=== PATIENT | female | born 1940 | race Caucasian/White ===

== ENCOUNTER 2017-09-02 20:20 | Observation (INO) ==
--- OUTSIDE RECORDS SUMMARY | 2017-09-02 20:46 | External Medical Summary | Referral Summary ---
:1940 Author Organization [facility] Address [address] [place] [address] Care Team Providers Name Role Phone Rashaun Mcgowan Primary Care Physician Encounter [facility] Date(s): 03/03/16 - 03/03/16 [facility] [address] [place] [address]- [place] Discharge Diagnosis: Hematuria Discharge Disposition: 01-Home or Self Care Attending Physician: Demarco Garcia MD Admitting Physician: Demarco Garcia MD Vital Signs Most recent to oldest [Reference Range]: 1 Blood Pressure [90-140/60-90 mmHg] 152/82 mmHg *HI* (03/03/16 3:08 PM) Problem List Condition Effective Dates Status Health Status Informant AF (atrial fibrillation)(Confirmed) Active Anticoagulation adequate(Confirmed) Active Adult hypothyroidism(Confirmed) Active Allergies, Adverse Reactions, Alerts Substance Reaction Severity Status penicillin Eczema (rash) Active Medications aspirin 325 mg, Oral, Daily, 0 Refill(s) Start Date: 02/22/16 Status: OrderedCalcium 600+D 2 tabs, Oral, Daily, 0 Refill(s) Start Date: 02/22/16 Status: Orderedflecainide 50 mg oral tablet mg tabs, Oral, q12hr, 0 Refill(s) Start Date: 02/02/16 Status: Orderedloratadine 10 mg oral tablet 10 mg 1 tabs, Oral, Daily, 0 Refill(s) Start Date: 02/22/16 Status: OrderedNitrostat 0.4 mg sublingual tablet 0.4 mg 1 tabs, SubLingual, q5min, as needed for chest pain, 0 Refill(s) Start Date: 02/22/16 Status: OrderedPradaxa 150 mg oral capsule 150 mg 1 caps, Oral, BID, # 60 caps, 0 Refill(s) Start Date: 02/02/16 Status: OrderedSynthroid 150 mcg (0.15 mg) oral tablet mcg tabs, Oral, Daily, 0 Refill(s) Start Date: 02/02/16 Status: OrderedVitamin D3 1000 intl units oral tablet 1,000 Intl_Units 1 tabs, Oral, Daily, 0 Refill(s) Start Date: 02/22/16 Status: Ordered Results No data available for this section Immunizations No data available for this section Procedures Procedure Date Related Diagnosis Body Site Cystourethroscopy (separate procedure).. 03/03/16 Social History Social History Type Response Smoking Status Never smoker Assessment and Plan Extracted from: Title: Office Visit Note Author: Demarco Garcia MD Date: 03/03/16 Assessment/Plan 1.Hematuria Almost certainly benign. Patient agreed to go to laboratory in July for follow-up urinalysis. She understands to return here should she develop recurrent gross hematuria. Information also provided to herregarding urinary tract infections in females and prophylactic measures.
--- OUTSIDE RECORDS SUMMARY | 2017-09-02 20:46 | External Medical Summary | Referral Summary ---
:1940 Author Organization [facility] Address [address] [place] [address] Care Team Providers Name Role Phone Rashaun Mcgowan Primary Care Physician Encounter [facility] Date(s): 02/22/16 - 02/22/16 [facility] [address] [place] [address]- [place] Discharge Diagnosis: Hematuria Discharge Disposition: 01-Home or Self Care Attending Physician: Demarco Garcia MD Admitting Physician: Demarco Garcia MD Referring Physician: Rashaun Mcgowan DO Vital Signs Most recent to oldest [Reference Range]: 1 Blood Pressure [90-140/60-90 mmHg] 150/88 mmHg *HI* (02/22/16 3:31 PM) Problem List Condition Effective Dates Status [...] Refill(s) Start Date: 02/22/16 Status: Ordered Results Chemistry Most recent to oldest [Reference Range]: 1 Creatinine Lvl [0.57-1.11 mg/dL] 0.74 mg/dL (02/22/16 4:40 PM) eGFR [>60 mL/min] >60 mL/min 1 (02/22/16 4:40 PM) 1Result Comment: Multiply eGFR results by 1.21 for race. Immunizations No data available for this section Procedures No data available for this section Social History Social History Type Response Smoking Status Never smoker Assessment and Plan Extracted from: Title: Office Visit Note Author: Demarco Garcia MD Date: 02/22/16 Assessment/Plan 1.Hematuria Particularly given thatthis was painless hematuriaand given her ageand with the previous normalcreatinine,I advised a CT urography. Rationale for these x-rays risks complic ations and side effects discussed. And I told herthat she needs a cystoscopy. Follow-up here emphasized. Differential diagnosisin layman's termsof hematuriagone over with her. Ordered: Creatinine Lvl CT Renal/Urography
--- OUTSIDE RECORDS SUMMARY | 2017-09-02 20:46 | External Medical Summary | Referral Summary ---
:1940 Author Organization [facility] Address [address] [place] [address] [place] [address] Care Team Providers Name Role Phone ShantelleClaude Cynthia Primary Care Physician Encounter [facility] [id number] Date(s): 02/02/16 - 02/02/16 [facility], [address] [place] [address]- [place] Discharge Disposition: 01-Home or Self Care Attending Physician: Marcel Coley MD Admitting Physician: Marcel Coley MD Vital Signs Most recent to oldest [Reference Range]: 1 Temperature Tympanic [36.6-38.1 degC] 36.4 degC *LOW* (02/02/16 8:28 AM) Peripheral Pulse Rate [60-100 bpm] 62 bpm (02/02/16 8:28 AM) Blood Pressure [90-140/60-90 mmHg] 160/72 mmHg *HI* (02/02/16 8:28 AM) SpO2 96 % (02/02/16 8:28 AM) Problem List Condition Effective Dates Status Health Status Informant AF (atrial fibrillation)(Confirmed) Active Anticoagulation adequate(Confirmed) Active Adult hypothyroidism(Confirmed) Active Allergies, Adverse Reactions, Alerts Substance Reaction Severity Status penicillin Eczema (rash) Active Medications flecainide 50 mg oral tablet mg tabs, Oral, q12hr, 0 Refill(s) Start Date: 02/02/16 Status: OrderedPradaxa 150 mg oral capsule 150 mg 1 caps, Oral, BID, # 60 caps, 0 Refill(s) Start Date: 02/02/16 Status: OrderedSynthroid 150 mcg (0.15 mg) oral tablet mcg tabs, Oral, Daily, 0 Refill(s) Start Date: 02/02/16 Status: Ordered Results No data available for this section Immunizations No data available for this section Procedures No data available for this section Social History Social History Type Response Smoking Status Never smoker Assessment and Plan Extracted from: Title: Ambulatory Patient Education Author: Marcel Coley MD Date: Family Medicine Hematuria Hematuria is blood in your urine. It can be caused by a bladder infection, kidney infection, prostate infection, kidney stone, or cancer of your urinary tract. Infections can usually be treated with med icine, and a kidney stone usually will pass through your urine. If neither of these is the cause of your hematuria, further workup to find out the reason may be needed. It is very important that you tell your health care provider about any blood you see in your urine, even if the blood stops without treatment or happens without causing pain. Blood in your urine that urban ppens and then stops and then happens again can be a symptom of a very serious condition. Also, pain is not a symptom in the initial stages of many urinary cancers. HOME CARE INSTRUCTIONS Drink lots of fluid, 34 quarts a day. If you have been diagnosed with an infection, cranberry juice is especially recommended, in addition to large amounts of water. Avoid caffeine, tea, and carbonated beverages because they tend to irritate the bladder. Avoid alcohol because it may irritate the prostate. Take all medicines as directed by your health care provider. If you were prescribed an antibiotic medicine, finish it all even if you start to feel better. If you have been diagnosed with a kidney stone, follow your health care provider's instructions regarding straining your urine to catch the stone. Empty your bladder often. Avoid holding urine for long periods of time. After a bowel movement, women should cleanse front to back. Use each tissue only once. Empty your bladder before and after sexual intercourse if you are a female. SEEK MEDICAL CARE IF: You develop back pain. You have a fever. You have a feeling of sickness in your stomach (nausea) or vomiting. Your symptoms are not better in 3 days. Return sooner if you are getting worse. SEEK IMMEDIATE MEDICAL CARE IF: You develop severe vomiting and are unable to keep the medicine down. You develop severe back or abdominal pain despite taking your medicines. You begin passing a large amount of blood or clots in your urine. You feel extremely weak or faint, or you pass out. MAKE SURE YOU: Understand these instructions. Will watch your condition. Will get help right away if you are not doing well or get worse. This information is not intended to replace advice given to you by your health care provider. Make sure you discuss any questions you have with your health care provider. Document Released: 11/02/2006 Document Revised: 03/19/2015 Document Reviewed: 07/03/2014 Exit[employer] Patient Information 2015 [employer]. No follow up information was provided. Extracted from: Title: Office Visit Note Author: Marcel Coley MD Date: 02/02/16 Assessment/Plan Adult hypothyroidism This issue was reviewed, appears stable, and current therapy continued except as mentioned. Appropriate lab was reviewed from the most recent appropriate entry and lab was order ed if needed in the cpoe/nursing orders, and follow up recommended generally in 90 days and no later then six months. AF (atrial fibrillation) Stable. Sees Dr. Knight. Hold pradaxa for 48 hours and f/u with . Anticoagulation adequate Hold pradaxa. Hematuria Keflex 500mg po qid for five days. Hematuria on UA. Strongly recommend cystoscopy and consideration of renal CT on Thursday. To ER if worse in any way. Much better and cleared today per her at this time.
[2017-09-02] MEDS ORDERED: HYDROMORPHONE 2 MG/ML INJECTION IVP ONE (20:52)
[2017-09-02] MEDS ORDERED: ONDANSETRON 4 MG/2 ML INJECTION IVP ONE ×2 (20:52→21:55)
--- NOTE | 2017-09-02 20:54 | Emergency Department Report ---
Fall HPI - General Chief Complaint: Fall Stated Complaint: fall, R shoulder/back pain Time Seen by Provider: 09/02/17 20:34 Source: patient Mode of arrival: wheelchair Limitations: no limitations - History of Present Illness HPI Narrative: PT fell about 1900 this evening while walking outside. States she landed on her right knee and right shoulder and did strike her head. Pt had an episode of emesis while in the lobby. She denies being dizzy or lightheaded prior to the fall states she lost her footing MD complaint: fall Onset (ago): hour(s) Fall from: standing Fall witnessed: yes, by family Place fall occurred: home Loss of consciousness: none Prolonged down time: no Symptoms prior to fall: none Context: tripped/slipped Location of injury: head, back, other Location of injury - extremities: Right: shoulder Associated symptoms (after fall): other (nausea and vomiting ) - Related Data Home Medications Medication Instructions Recorded Confirmed Nitroglycerin [Nitrostat] 1 tab SL PRN INSTRUCTED #25 09/09/13 09/02/17 Apixaban [Eliquis] 5 mg PO BID 09/02/17 09/02/17 Flecainide [Tambocor] 50 mg PO Q12H 09/02/17 09/02/17 Guaifenesin/P-Ephed 600/60 Tab 1 tab PO HS 09/02/17 09/02/17 [Mucinex D] Levothyroxine Sodium 125 mcg PO AM 09/02/17 09/02/17 Loratadine [Claritin] 10 mg PO AM 09/02/17 09/02/17 Allergies Allergy/AdvReac Type Severity Reaction Status Date / Time Penicillins Allergy Mild RASH Verified 09/02/17 20:45 Review of Systems All systems: reviewed and negative except as stated Constitutional: Denies: fever, weakness Cardiovascular: Denies: chest pain Gastrointestinal: Reports: nausea, vomiting Musculoskeletal: Reports: back pain, joint swelling [facility]gumentary: [facility]: [facility] - Social History Smoking status: Never smoker Physical Exam - Limitations Limitations: no limitations - General General appearance: alert, in distress - Normal Exams: Head:: Normocephalic without trauma (small bruise to right forehead) Neck:: Full range of motion, without adenopathy Chest/Respirations:: Clear all shoemaker, with good airflow, and symmetry bilaterally Cardiovascular:: Regular rate and rhythm, without murmur or gallop Abdomen:: Bowel sounds positive, soft, non-tender, non-distended Integumentary:: No rashes Neurological:: Patient is alert, and oriented, cranial nerves Psychiatric:: Patient exhibits, appropriate attention, emotion and affect - Expanded Upper Extremity Exam Shoulder exam: Present: tenderness, swelling. Absent: full ROM - Back Exam Back exam: Present: normal inspection, full ROM. Absent: tenderness (no midline tenderness with palpation) Course - Consultations Consultation #1: elizabeth Time: 21:46 Consultation #2: Andreas Time: 22:00 Vital Signs Temperature 98 F 09/02/17 20:30 Pulse Rate 63 09/02/17 20:30 Respiratory Rate 16 09/02/17 20:30 Blood Pressure 150/68 H 09/02/17 20:30 Pulse Oximetry 95 09/02/17 20:30 Temperature 98 F 09/02/17 20:30 Pulse Rate 85 09/02/17 21:52 Respiratory Rate 24 09/02/17 21:52 Blood Pressure 105/55 09/02/17 21:52 Pulse Oximetry 93 09/02/17 21:52 Fall - [facility] Narrative Medical decision making narrative: Xray reveals right humeral head fracture per Dr Anthony report. Head CT performed 2/2 to pt vomiting and ELiquis use for A fib with no acute findings. Dr Gamez notified of fracture and need to admit pt for pain control as she lives by herself and will need assist with ADLs as well as the continued vomiting. Dr Johns notified for admission. Pt and family in agreement with current treatment course - Differential Diagnosis Likely: syncope, dislocation of shoulder region, compression fracture, concussion without loss of consciousness - Radiology Data Attestation: I reviewed the patient's radiology results. (per Dr Anthony report) Disposition Clinical Impression: Fracture of humeral head Qualifiers: Encounter type: initial encounter Fracture type: closed Laterality: right Qualified Code(s): S42.291A - Other displaced fracture of upper end of right humerus, initial encounter for closed fracture Vomiting Qualifiers: Vomiting type: unspecified Vomiting Intractability: intractable Nausea presence : with nausea Qualified Code(s): R11.2 - Nausea with vomiting, unspecified Disposition: [address] [facility] [place] Acute Care Condition: Improved Prescriptions: No Action Nitroglycerin [Nitrostat] 1 tab SL PRN INSTRUCTED #25 Levothyroxine Sodium 125 mcg PO AM Apixaban [Eliquis] 5 mg PO BID Loratadine [Claritin] 10 mg PO AM Guaifenesin/P-Ephed 600/60 Tab [Mucinex D] 1 tab PO HS Flecainide [Tambocor] 50 mg PO Q12H Time of Disposition: 22:10 - Seen By: giancarlo
[2017-09-02] MEDS ORDERED: NS 1,000 ML IV SCH (22:00)
[2017-09-02] MEDS: HYDROMORPHONE 2 MG/ML INJECTION IVP PRN ×2 (22:24→23:34)
[2017-09-02] MEDS ORDERED: NITROGLYCERIN 0.4 MG SUBLINGUAL TABLET SL PRN (22:56)
[2017-09-02] MEDS ORDERED: ACETAMINOPHEN 325 MG TABLET PO PRN (22:56)
[2017-09-02] MEDS ORDERED: ONDANSETRON 4 MG/2 ML INJECTION IVP PRN (22:56)
[2017-09-02] MEDS ORDERED: POLYETHYL. GLYCOL 3350 BOTTLE 238 GM PO PRN (22:56)
--- NOTE | 2017-09-02 23:20 | History & Physical Report ---
<Lucian Johns - Last Filed: 09/03/17 00:12> History of Present Illness Date: 09/03/17 Chief complaint: Trip and fall HPI: Ms Souza is a 77 y/o female w/ a past med history significant for AFib on Eliquis, Hypothyroidism who presents to [facility] ED w/ concern about her right shoulder. Patient states she was outside [facility] burning her trash when she lost her footing and fell to the ground primarily on her right shoulder and also hit her head. She felt the right shoulder pain immediately and had trouble moving the right UE. She was able to get to a position to call her son who came over to help her. Prior to the fall patient states she had been feeling "fine", and denied any illnesses other than she did have a little "stomach upset" today. She denies cough, dyspnea, WALTERS, change in bladder function and denies diarrhea. She did have some n/v upon presentation to the ER. In the ER patient noted to have Right humeral head fracture and therefore ER provider contacted Dr. Gamez of [facility] and he suggested hospitalization and pain control but did not feel that surgery was warranted at this time. Patient was given IV Dilaudid 0.5mg x 2 and Zofran 4mg IV x one and at present she is feeling much better and her n/v has improved. Head CT done as well and is negative. Patient did not take her dose of Eliquis tonight. Patient to be admitted to the Hospitalist service for further evaluation and management with consult from Orthopedic surgery Review of Systems Review of systems: 10 point ROS negative except that as noted in the HPI PFSH Patient has h/o AFib, Hypothyroidism, arthritis, Seasonal Allergies Family History: Patient's father had anuersym and at age 53; Patient's mother w/ DM Type 2 and lived into her early 90s; Patient's brother has DM type 2 and HTN - Social History Smoking status: Never smoker Substance use type: does not use Alcohol intake frequency: does not drink Housing: house Current occupation: Retired Schoolteacher Medications Home Medications Medication Instructions Recorded Confirmed Type Nitroglycerin [Nitrostat] 1 tab SL PRN INSTRUCTED #25 09/09/13 09/02/17 History Apixaban [Eliquis] 5 mg PO BID 09/02/17 09/02/17 History Flecainide [Tambocor] 50 mg PO Q12H 09/02/17 09/02/17 History Guaifenesin/P-Ephed 600/60 Tab 1 tab PO HS 09/02/17 09/02/17 History [Mucinex D] Levothyroxine Sodium 125 mcg PO AM 09/02/17 09/02/17 History Loratadine [Claritin] 10 mg PO AM 09/02/17 09/02/17 History Allergies Allergy/AdvReac Type Severity Reaction Status Date / Time Penicillins Allergy Mild RASH Verified 09/02/17 20:45 Exam Vital Signs: Temperature 98 F 09/02/17 20:30 Pulse Rate 72 09/02/17 23:00 Respiratory Rate 24 09/02/17 21:52 Blood Pressure 111/56 09/02/17 22:48 Pulse Oximetry 95 09/02/17 23:00 - Constitutional Present: no acute distress, well nourished, well developed - Routine HEENT Exam Head: Present: normocephalic Eye: Present: EOMI, PERRL. Absent: scleral injection ENT: Present: mucous membranes moist - Routine Neck Exam Present: supple, full ROM - Routine Respiratory Exam Present: CTA bilaterally - Routine Cardiovascular Exam Present: S1, S2 Comments: Rhythm regular - Routine Abdominal Exam Present: soft, normoactive bowel sounds, non distended - Routine Extremities Exam Absent: cyanosis, clubbing, edema Comments: Right upper extremity in an immobilizer; moves right digits and wrist w/o difficulty; no numbness or tingling - Routine Skin Exam Present: intact. Absent: cyanosis, erythema - Routine Neurological Exam Present: alert, oriented X3 - Routine Psychiatric Exam Present: normal affect, normal thought process Results - Labs CBC & Chem 7: 09/02/17 22:59 09/02/17 22:59 Assessment and Plan DVT Prophylaxis: SCD's Resuscitation Status: Full Code Assessment and Plan: Assessment: 1) S/p mechanical fall w/ Right humeral head fracture and right shoulder pain 2) N/V likely r/t to above 3) Afib on flecainide and Eliquis 4) Acute Leukocytosis - acute phase reaction vs. other etiology 5) Hypothyroidism Plan: Admit to Hospitalist service Consult Ortho Right shoulder immobilizer, bed at 30 degrees and Ice pack prn on shoulder Pain meds that of acetaminophen, Noprnrco 5/325mg po q 6 hours and prn Dilaudid 0.5mg IV q 3 hours prn breakthrough pain Telemetry Zofran 4mg IV q 4 hours prn Hold Eliquis dose tonight - will defer to primary Hospitalist and Ortho re: resuming Eliquis Continue Flecainide PT/OT evals UA Labs in AM - CBC and BMP Supportive care I discussed the plan of care with the patient and patient verbalized understanding Hospital Course Summary Disclaimer: The visit summary below is not to be considered part of the above Progress Note. <Natty Segura - Last Filed: 09/03/17 10:05> History of Present Illness Date: 09/03/17 [facility] Patient Stated Medical History Cataracts Yes: chelita eyes Hearing Loss Yes: chelita hearing aids Other Cardiology Yes: a fib Hx Incontinence Yes: stress incontinence Other Hematologic Yes: on blood thinners Other Musculoskeletal Yes: arthritis in chelita ankles Exam Vital Signs: Temperature 96.2 F L 09/03/17 07:25 Pulse Rate 69 09/03/17 07:25 Respiratory Rate 20 09/03/17 07:25 Blood Pressure 102/43 09/03/17 07:25 Pulse Oximetry 93 09/03/17 07:25 Height/Weight/BMI: Height 5 ft 6 in Weight 216 lb 14.958 oz Body Mass Index 35.0 Results - Labs CBC & Chem 7: 09/03/17 04:02 09/03/17 08:38 Assessment and Plan Assessment and Plan: I have independently evaluated and examined this patient. I reviewed the chart, the patient's history, and the above documented findings with additions as below. The patient is a 77-year-old white female [place] She was out burning trash yesterday when she stepped on a prior which rolled under her feet and she fell to the ground landing on her right shoulder, right knee and hit her head. She reports it took a while for her to be able to sit out and then she was able to reach her cell phone and call her son who came to help her. She was brought to the emergency department and found to have a right humeral head fracture. She reports that after she arrived in the emergency department she started having nausea and vomiting and threw up about 3 or 4 times. She denies any fevers,chills, sweats, no abdominal pain, no diarrhea. In fact, she's had constipation issues for which she has taken MiraLAX. She reports about a week ago she felt dizzy and didn't know if it was an inner ear problem or due to constipation. After she took MiraLAX the problems resolved. Past medical history: Atrial fibrillation for which she has been followed by Dr. Day she was on per DEXA until about 6 weeks ago and then switched to eliquis Hypothyroidism Arthritis primarily involving her ankles for which she takes Tylenol Seasonal allergies Colonoscopy about 10 years ago Family history as above. Social history: She does not smoke she does not drink alcohol she lives independently on her own. She is a retired math specialist. Immunizations: She has had at least one pneumococcal vaccine, she's not sure if she's had 2. She needs influenza vaccine. She needs a Tdap Review of systems: The patient denies fevers, chills or sweats,no changes in weight HEENT: No headaches,sinus problems and sinus drainage secondary to seasonal allergies, no visual changes, no sore throat, no sores in the mouth, no dental problems. Lungs: No shortness of breath, no dyspnea on exertion, no cough, no sputum production. CV: No chest pain,no palpitations for the last 6 months, no swelling of the extremities GI: As per history of present illness,,no blood in the stool, no dark-colored stools, no bright red blood per rectum. : No dysuria, no hematuria, no flank pain. Musculoskeletal: No numbness or tingling in the arms or legs, no weakness. Skin: No skin rash. Physical exam: In general the patient is alert and oriented, cooperative with exam in no respiratory distress. HEENT: Head is atraumatic and normocephalic. Pupils are equal round and reactive to light. Extraocular movements are intact. There is no conjunctival petechiae or scleral icterus. Oral mucosa is moist and pink with out exudate or lesions. Neck is supple without adenopathy. Lungs: Clear to auscultation, no wheezes, no rhonchi, no crackles. CV: Regular rate and rhythm without murmur, occasional extrasystole Abdomen: Bowel sounds are present. There is no guarding, no rebound, no hepatosplenomegaly. Extremities: Has no clubbing,no cyanosis, no edema. Right shoulder has marketed swelling noted there is no warmth, is slightly tender, there is no erythema. Her right knee is slightly tender but without effusion. Musculoskeletal: Moves all 4 extremities without difficulty except the right upper extremity secondary to fracture Skin: Is warm and dry without evidence of rash or ecchymoses Assessment: Comminuted impacted right surgical neck fracture Right knee pain Nausea and vomiting appear to be resolving Hyperkalemia with potassium 5.1 however with recheck it was 4.2. Atrial fibrillation on eliquis, flecainide Hypothyroidism on levothyroxine Seasonal allergies for which she uses Mucinex Immunization status Plan: Appreciate Dr. Gamez's input. The patient is to be scheduled to see Dr. Castanon as an outpatient next week for discussion of potential surgical interventions. As discussed with Mendel Contreras, we'll resume eliquis as it has a half-life of 12 hours. We'll add oral [place] for pain management which does not respond to Tylenol. Have advised patient and the risks of constipation secondary to narcotics, she reports she uses MiraLAX at home. We will have case management evaluate the patient for safe options at discharge. The patient and family have concerns about her going home as she is fairly isolated lives alone. We'll given influenza vaccine and a T Tdap today. The patient will follow-up with Dr. Mcgowan to see if she's received both pneumococcal vaccines 13 and 23 Valent. Hospital Course Summary Disclaimer: The visit summary below is not to be considered part of the above Progress Note.
[2017-09-02 23:48] VITALS: BMI 35.0
[2017-09-03] MEDS: FLECAINIDE 50 MG TABLET PO SCH ×2 (00:20→13:37)
[2017-09-03] MEDS ORDERED: HYDROMORPHONE 2 MG/ML INJECTION IVP PRN ×4 (01:59→03:08)
[2017-09-03] MEDS: HYDROMORPHONE 2 MG/ML INJECTION IVP PRN (03:05)
[2017-09-03] MEDS ORDERED: LEVOTHYROXINE 125 MCG TABLET PO SCH (06:30)
[2017-09-03] MEDS ORDERED: LORATADINE 10 MG TABLET PO SCH (07:00)
[2017-09-03 07:58] VITALS: BP 102/43; RESP 20; TEMP 96.2; O2SAT 93
--- NOTE | 2017-09-03 08:11 | Orthopedic Consult Note ---
Orthopedic Consultation HPI - Consultation Info Consult Date: 09/03/17 Attending Physician: David Gamez MD Consult Reason: fracture - History of Present Illness Mrs. Souza is a 77 year old female who fell yesterday landing on her right shoulder. She hit her head as well. She takes Eliquis for A-fib. She was seen in the ER yesterday. CT of her head was negative. She was admitted for pain control under the care of the hospitalist team. X-rays of her right shoulder show a impacted, comminuted surgical neck humerus fracture. Review of Systems - Constitutional Constitutional: Present: headache(s). Absent: weakness, dizziness Comments: denies diplopia, tinnitus, trouble swallowing. - EENT Eyes: Absent: blurry vision, diplopia Ears, nose, mouth, throat: Present: headaches. Absent: vertigo, ear pain, tinnitus - Cardiovascular Cardiovascular: Absent: chest pain Vascular: Absent: pallor of an extermity, pedal edema - Respiratory Respiratory: Absent: cough - Gastrointestinal Gastrointestinal: Absent: abdominal pain - Genitourinary Genitourinary General: Absent: fever(s) - Musculoskeletal Musculoskeletal: Present: joint swelling (right shoulder, some ache/pain to right lateral knee.), limited range of motion (right shoulder) Additional comments: N/V intact to right hand and fingers. full active range of motion of the right wrist and hand. - Neurological Neurological: Absent: dizziness, numbness, paresthesias - Endocrine Endocrine: Absent: palpitations - Hematologic/Lymphatic Hematologic/Lymphatic: Present: easy bleeding (on Eliquis) PFS Patient Stated Medical History Cataracts Yes: chelita eyes Hearing Loss Yes: chelita hearing aids Other Cardiology Yes: a fib Hx Incontinence Yes: stress incontinence Other Hematologic Yes: on blood thinners Other Musculoskeletal Yes: arthritis in chelita ankles - Social History Smoking status: Never smoker Medications Home Medications Medication Instructions Recorded Confirmed Type Nitroglycerin [Nitrostat] 1 tab SL PRN INSTRUCTED #25 09/09/13 09/02/17 History Apixaban [Eliquis] 5 mg PO BID 09/02/17 09/02/17 History Flecainide [Tambocor] 50 mg PO Q12H 09/02/17 09/02/17 History Guaifenesin/P-Ephed 600/60 Tab 1 tab PO HS 09/02/17 09/02/17 History [Mucinex D] Levothyroxine Sodium 125 mcg PO AM 09/02/17 09/02/17 History Loratadine [Claritin] 10 mg PO AM 09/02/17 09/02/17 History Allergies Allergy/AdvReac Type Severity Reaction Status Date / Time Penicillins Allergy Mild RASH Verified 09/02/17 20:45 Orthopedic Exam Vital signs: Temperature 96.2 F L 09/03/17 07:25 Pulse Rate 69 09/03/17 07:25 Respiratory Rate 20 09/03/17 07:25 Blood Pressure 102/43 09/03/17 07:25 Pulse Oximetry 93 09/03/17 07:25 - Constitutional General Appearance: Present: alert, orientated x3, no acute distress - Respiratory Exam Present: non-labored - Cardiovascular Exam Present: irregular rhythm Capillary Refill: < 2-3 Seconds - Abdominal Exam Absent: tenderness - Extremities Exam Present: pulses intact, joint swelling (Right shoulder). Absent: cyanosis, clubbing, edema, calf tenderness Comments: Right knee is TTP over the fibular head, minimal joint line tenderness. No overt effusion. ROM 0-110, N/V intact. - Integumentary Exam Present: pink, warm, dry, intact - Lymphatic Lymphatic: Absent: lymphedema - Neurological Exam Present: intact to light touch, no deficits - Psychiatric Exam Present: normal affect - Labs Result Diagrams: 09/03/17 04:02 09/03/17 04:02 Abnormal lab results 09/03/17 09/03/17 09/03/17 Range/Units 03:56 04:02 04:02 WBC 11.8 H (4.5-11.0) T/MM3 Neutrophils % (Manual) 87.0 H (33-66) % Lymphocytes % (Manual) 6.0 L (23-45) % Neutrophils # (Manual) 10.3 H (1.8-7.7) T/MM3 Lymphocytes # (Manual) 0.7 L (1-4.8) T/MM3 Sodium 145 H (134-144) MEQ/L Potassium 5.1 H D (3.6-5) MEQ/L Glucose 152 H (65-110) MG/DL Calculated Osmolality 284 H (261-280) MOSM/KG Urine Protein Trace A (NEGATIVE) Urine Ketones Trace A (NEGATIVE) H & H 09/03/17 Range/Units 04:02 Hgb 12.4 (12-16) GM/DL Hct 38.7 (36-46) % - Diagnostic results Shoulder x-ray: image reviewed Impression and Recommendation (1) Right knee pain Current visit: Yes Status: Acute X-ray right knee (2) Fracture of humeral head Current visit: Yes Qualifiers: Encounter type: initial encounter Fracture type: closed Laterality: right Qualified Code(s): S42.291A - Other displaced fracture of upper end of right humerus, initial encounter for closed fracture Status: Acute She has a comminuted impacted right surgical neck fracture. Dr. Gamez is recommending further evaluation by Dr. Cal Castanon on an outpatient basis. Her options are nonoperative care with acceptance of potential finishing trimmer OA, possible decreased ROM vs consider a reverse total shoulder arthroplasty. She should follow up within a week with Dr. Castanon. Hospital Course Summary Disclaimer: The visit summary below is not to be considered part of the above Progress Note.
--- NOTE | 2017-09-03 09:11 | CT Scan Report ---
Indication: fall with head trauma, on blood thinner, vomited PROCEDURE: CT head/brain wo con: Encounter: Initial Comparison: None Technique: Axial CT images through the head were performed without contrast. Iterative Reconstruction dose reducing technique was utilized. FINDINGS: Mild generalized atrophy. The ventricles are of normal size, shape, and configuration for the patient's age. There is no evidence of acute intracranial hemorrhage, midline displacement, or mass effect. There are scattered areas of low attenuation in the white matter which most likely represent changes of chronic microvascular ischemia. The CT attenuation of the brain parenchyma is otherwise normal within the cerebellum, brain stem, and cerebral hemispheres. The tympanic cavities and mastoid air cells are free of appreciable disease. There are no definite fractures of the skull base, calvarium, or visualized portion of the midface. IMPRESSION: No CT evidence of acute traumatic intracranial injury. There is a preliminary report by virtual radiologic. .
--- NOTE | 2017-09-03 09:11 | XRay Report ---
Indication: fall pain PROCEDURE: XR shoulder RT 2-3 views: Encounter: Initial Comparison: None Findings: Impacted mildly displaced fracture of the surgical neck right humerus extending into the greater tuberosity. No additional acute fracture. No dislocation. Impression: Closed posttraumatic right humeral head and neck fracture. .
--- NOTE | 2017-09-03 09:14 | XRay Report ---
Indication: PAIN TO RIGHT KNEE, POST FALL PROCEDURE: XR knee RT 3V: Encounter: Initial Comparison: None Findings: Slight cortical irregularity of the lateral most aspect of the patella seen on the sunrise view only could represent a tiny chip fracture. No additional area concerning for acute fracture. No dislocation. Impression: Possible tiny chip fracture of the lateral patella. .
[2017-09-03] MEDS ORDERED: INFLUENZA VAC QIV 2017-18 (Fluarix*)(>=3yo) 0.5ml IM ONE (09:48)
[2017-09-03] MEDS ORDERED: TETANUS, DIPHTHERIA, a PERTUSSIS (Tdap) 0.5ml INJECTION IM ONE (09:48)
[2017-09-03] MEDS: HYDROCODONE/APAP 5mg/325mg TABLET PO PRN ×2 (10:33→13:31)
--- NOTE | 2017-09-03 12:01 | Discharge Instructions ---
Discharge Plan - Med Rec/Dispo Referrals/Follow Up: SHAILA SAMUELS [Other] - 09/04/17 8:30 am Rashaun Mcgowan DO [Family Provider] - 09/08/17 10:00 am Prescriptions: New Acetaminophen [Tylenol] 650 mg PO Q5H PRN tablet PRN Reason: Discomfort Hydrocodone/APAP 5/325 [[place] 5/325] 1 - 2 tab PO Q4H PRN #30 tab PRN Reason: Pain Continue Nitroglycerin [Nitrostat] 1 tab SL PRN INSTRUCTED #25 Levothyroxine Sodium 125 mcg PO AM Apixaban [Eliquis] 5 mg PO BID Loratadine [Claritin] 10 mg PO AM Guaifenesin/P-Ephed 600/60 Tab [Mucinex D] 1 tab PO HS Flecainide [Tambocor] 50 mg PO Q12H Discharge Instructions/Outpatient Orders: Provider Discharge Instructions Location: Determined By Patient - Disposition 01 Discharged Home, Self-Care
--- NOTE | 2017-09-03 12:09 | Discharge Summary ---
Discharge Information Date of admission: 09/02/17 23:05 Attending Physician: Natty Segura MD Primary care physician: Rashaun Mcgowan DO - Laboratory Labs: 09/03/17 04:02 09/03/17 08:38 History of Present Illness HPI: Ms Souza is a 77 y/o female w/ a past med history significant for AFib on Eliquis, Hypothyroidism who presents to [facility] ED w/ concern about her right shoulder. Patient states she was outside tonight burning her trash when she lost her footing and fell to the ground primarily on her right shoulder and also hit her head. She felt the right shoulder pain immediately and had trouble moving the right UE. She was able to get to a position to call her son who came over to help her. Prior to the fall patient states she had been feeling "fine", and denied any illnesses other than she did have a little "stomach upset" today. She denies cough, dyspnea, WALTERS, change in bladder function and denies diarrhea. She did have some n/v upon presentation to the ER. In the ER patient noted to have Right humeral head fracture and therefore ER provider contacted Dr. Gamez of [facility] and he suggested hospitalization and pain control but did not feel that surgery was warranted at this time. Patient was given IV Dilaudid 0.5mg x 2 and Zofran 4mg IV x one and at present she is feeling much better and her n/v has improved. Head CT done as well and is negative. Patient did not take her dose of Eliquis tonight. Patient to be admitted to the Hospitalist service for further evaluation and management with consult from Orthopedic surgery Objective Vital signs: Temperature 96.2 F L 09/03/17 07:25 Pulse Rate 69 09/03/17 07:25 Respiratory Rate 20 09/03/17 07:25 Blood Pressure 102/43 09/03/17 07:25 Pulse Oximetry 93 09/03/17 07:25 Height/Weight/BMI: Height 5 ft 6 in Weight 216 lb 14.958 oz Body Mass Index 35.0 - Additional findings Additional findings: In general, the patient is alert and oriented 3, cooperative with exam, and in no respiratory distress. HEENT: Head is atraumatic, normocephalic, no conjunctival petechiae, no oral thrush, mucous membranes are moist and pink. Lungs: Clear to auscultation without wheezes, crackles or rhonchi CV: Regular rate and rhythm without murmur Abdomen: Soft, nontender, bowel sounds are present, there is no guarding no rebound. Extremities: No clubbing, no cyanosis, no edema except swelling of right shoulder and tenderness with palpation. Slight tenderness of right knee with palpation. Skin: Warm and dry no sign of rash Neuro: Patient is alert X-ray of the right knee: Findings: Slight cortical irregularity of the lateral most aspect of the patella seen on the sunrise view only could represent a tiny chip fracture. No additional area concerning for acute fracture. No dislocation. Impression: Possible tiny chip fracture of the lateral patella. X-ray right shoulder 2-3 views Findings: Impacted mildly displaced fracture of the surgical neck right humerus extending into the greater tuberosity. No additional acute fracture. No dislocation. Impression: Closed posttraumatic right humeral head and neck fracture. Hospital Course This is a general summary of the patient's hospital course. For more details refer to the complete medical record. The patient was admitted and seen by Dr. Gamez. She was found to have a comminuted impacted right surgical neck fracture. Her options are nonoperative care with acceptance of potential long-term osteoarthritis with possible decreased range of motion versus a reverse total shoulder arthroplasty by Dr. Shaila Castanon. The patient has been set up for an appointment to see Dr. Castanon next week. She has a history of atrial fibrillation for which she is on eliquis. Has eliquis has a half-life of 12 hours we'll continue the eliquis at this point. She did have us. His elevation of her potassium which upon recheck was 4.2. She will be discharged back home today after talking with case management she was not interested in other options. Her family is at the bedside and is agreeable to the plans. Discussed the the possible tiny chip fracture of the lateral patella on the plain films of her knee with Mendel GÓMEZ with Dr. Gamez. He believes that she can continue weightbearing and follow up with Dr. Gamez as needed as an outpatient. . Discharge Plan - Med Rec/Dispo Referrals/Follow Up: SHAILA CASTANON [Other] - 09/04/17 8:30 am Rashaun Mcgowan DO [Family Provider] - 09/08/17 10:00 am Prescriptions: New Acetaminophen [Tylenol] 650 mg PO Q5H PRN tablet PRN Reason: Discomfort Hydrocodone/APAP 5/325 [[place] 5/325] 1 - 2 tab PO Q4H PRN #30 tab PRN Reason: Pain Continue Nitroglycerin [Nitrostat] 1 tab SL PRN INSTRUCTED #25 Levothyroxine Sodium 125 mcg PO AM Apixaban [Eliquis] 5 mg PO BID Loratadine [Claritin] 10 mg PO AM Guaifenesin/P-Ephed 600/60 Tab [Mucinex D] 1 tab PO HS Flecainide [Tambocor] 50 mg PO Q12H Discharge Instructions/Outpatient Orders: Provider Discharge Instructions Location: Determined By Patient - Disposition 01 Discharged Home, Self-Care
[2017-09-03 12:11] VITALS: PULSE 65
[2017-09-03] MEDS ORDERED: Tdap VACCINE ADMINISTR CHARGE INJ ONE (13:54)
[2017-09-03] MEDS ORDERED: INFLUENZA VAC. INJ. ADMIN CHARGE INJ ONE (13:54)
[2017-09-03] MEDS ORDERED: GUAIFENESIN/P-EPHED 600 MG/60 MG TAB (12HR) PO SCH (21:00)
[2017-09-03] MEDS ORDERED: APIXABAN 5 MG TABLET PO SCH (21:00)
== END 2017-09-03 13:55 | disposition home health service (06) ==
LOC: SRG 20:20 → ED 20:20 → SRG 23:25
PROVIDERS: ADMIT Internal Medicine; ATTEND Internal Medicine Infectious Disease